=== PATIENT | female | born 1990 | race Caucasian/White ===

== ENCOUNTER 2017-04-20 23:06 | Inpatient (IN) | payer OTHER ==
[2017-04-20] MEDS ORDERED: Sodium Chloride 0.9% 1,000 ML IV STA (23:40)
--- NOTE | 2017-04-20 23:43 | ED PDOC ---
Arrival/HPI - General Chief Complaint: GI Problem Time Seen by Provider: 04/20/17 23:34 Historian: Patient - History of Present Illness Narrative History of Present Illness (Text): 04/20/17 23:40 26yo female in Ed with 5days history of abdominal pain associated with nausea, vomiting and diarrhea. Notes once episode of nonbilious/bloody vomiting today and diarrhea. Did not take any medication for symptoms. Denies fever, chills, chest pain, melena, hematemesis, urinary symptoms, sick contact, any other complaint. Past Medical History - Provider Review Nursing Documentation Reviewed: Yes - Infectious Disease Hx of Infectious Diseases: None - Tetanus Immunization Tetanus Immunization: Unknown - Past Medical History Past Medical History: No Previous - Psychiatric Hx Depression: No Hx Emotional Abuse: No Hx Physical Abuse: No Hx Substance Use: No - Past Surgical History Past Surgical History: No Previous - Surgical History Other/Comment: liposuction - Anesthesia Hx Anesthesia: No Hx Anesthesia Reactions: No Hx Malignant Hyperthermia: No - Suicidal Assessment Feels Threatened In Home Enviroment: No Family/Social History - Physician Review Nursing Documentation Reviewed: Yes Family/Social History: Unknown Family HX Smoking Status: Former Smoker Hx Alcohol Use: Yes (Socially) Hx Substance Use: No Hx Substance Use Treatment: No Allergies/Home Meds Allergies/Adverse Reactions: Allergies No Known Allergies Allergy (Verified 06/30/16 19:39) Review of Systems - Physician Review All systems were reviewed & negative as marked: Yes - Review of Systems Constitutional: Normal Eyes: Normal ENT: Normal Respiratory: Normal Cardiovascular: Normal Gastrointestinal: Abdominal Pain, Diarrhea, Nausea, Vomiting. absent: Constipation, Hematochezia, Hematemesis Genitourinary Female: Normal Musculoskeletal: Normal Skin: Normal Neurological: Normal Endocrine: Normal Hemo/Lymphatic: Normal Psychiatric: Normal Physical Exam Vital Signs Reviewed: Yes Vital Signs Temp Pulse Resp BP Pulse Ox 04/20/17 23:28 99.1 F 88 18 102/58 L 99 Temperature: Afebrile Blood Pressure: Normal Pulse: Regular Respiratory Rate: Normal Appearance: Positive for: Well-Appearing, Non-Toxic, Comfortable Pain Distress: None Mental Status: Positive for: Alert and Oriented X 3 - Systems Exam Head: Present: Atraumatic, Normocephalic Pupils: Present: PERRL Extroacular Muscles: Present: EOMI Conjunctiva: Present: Normal Mouth: Present: Moist Mucous Membranes Neck: Present: Normal Range of Motion Respiratory/Chest: Present: Clear to Auscultation, Good Air Exchange. No: Respiratory Distress, Accessory Muscle Use Cardiovascular: Present: Regular Rate and Rhythm, Normal S1, S2. No: Murmurs Abdomen: Present: Tenderness (Diffuse tenderness with deep palpation), Normal Bowel Sounds, Other (Soft). No: Distention, Peritoneal Signs, Rebound, Guarding , McBurney's Point Tender, Rovsing's Sign Present Back: Present: Normal Inspection Upper Extremity: Present: Normal Inspection. No: Cyanosis, Edema Lower Extremity: Present: Normal Inspection. No: Edema Neurological: Present: GCS=15, CN II-XII Intact, Speech Normal Skin: Present: Warm, Dry, Normal Color. No: Rashes Psychiatric: Present: Alert, Oriented x 3, Normal Insight, Normal Concentration Medical Decision Making ED Course and Treatment: 04/21/17 01:10 PT presented for stated history. She had no leukocytosis, but hyponatremia and hypokalemia was noted. She complained of nausea in ED and antiemetics was given. she will be placed on OBS for repletion of her electrolytes. She was given 1 L of NS and Potassium was ordered. Case was DW Dr. Castellanos and he accepted pt. Result and plan was DW the pt and she agreed. - Lab Interpretations Lab Results: 04/21/17 00:16 04/21/17 00:16 Lab Results 04/21/17 00:16: Sodium 125 L, Potassium 3.0 L, Chloride 92 L, Carbon Dioxide 23 , Anion Gap 13, BUN 19, Creatinine 1.2, Est GFR ( Amer) > 60, Est GFR ( Non-Af Amer) 54, Random Glucose 110, Calcium 8.2 L, Total Bilirubin 0.8, AST 27 , ALT 31, Alkaline Phosphatase 68, Total Protein 6.8, Albumin 3.3, Globulin 3.5 , Albumin/Globulin Ratio 1.0 L, Lipase 104 04/21/17 00:16: Urine Color Yellow, Urine Appearance Cloudy, Urine pH 6.0, Ur Specific [place] 1.025, Urine Protein 100 H, Urine Glucose (UA) Negative, Urine Ketones Negative, Urine Blood Small H, Urine Nitrate Negative, Urine Bilirubin Small H, Urine Urobilinogen 0.2, Ur Leukocyte Esterase Negative, Urine RBC 1 - 3 , Urine WBC 2 - 5, Ur Epithelial Cells 1 - 3, Urine Bacteria Small, Hyaline Casts 0 - 2, Fine Granular Casts 0 - 2 04/21/17 00:16: PT 12.7 H, INR 1.18 H, APTT 34.5 H 04/21/17 00:16: WBC 9.0, RBC 4.62, Hgb 14.1, Hct 38.7, MCV 83.8, MCH 30.5, MCHC 36.4, RDW 13.3, Plt Count 198, MPV 10.9, Neutrophils % (Manual) Pending, Lymphocytes % (Manual) Pending, Monocytes % (Manual) Pending - Medication Orders Current Medication Orders: Potassium Chloride (Potassium Chloride 20 Meq/100 Ml) 20 meq in 100 mls @ 50 mls/hr IVPB Q2H STA Stop: 04/21/17 03:05 Discontinued Medications Famotidine (Pepcid) 20 mg IVP STAT STA Stop: 04/20/17 23:41 Last Admin: 04/21/17 00:27 Dose: 20 mg Sodium Chloride (Sodium Chloride 0.9%) 1,000 mls @ 1,000 mls/hr IV .Q1H STA Stop: 04/21/17 00:39 Last Admin: 04/21/17 00:27 Dose: 1,000 mls/hr Ondansetron HCl (Zofran Inj) 4 mg IVP STAT STA Stop: 04/20/17 23:41 Last Admin: 04/21/17 00:27 Dose: 4 mg Disposition/Present on Arrival - Present on Arrival Any Indicators Present on Arrival: No History of DVT/PE: No History of Uncontrolled Diabetes: No Urinary Catheter: No History of Decub. Ulcer: No History Surgical Site Infection Following: None - Disposition Have Diagnosis and Disposition been Completed?: Yes Diagnosis: Abdominal pain, Vomiting and diarrhea, Hyponatremia Disposition: HOSPITALIZED Disposition Time: 01:05 Condition: FAIR
[2017-04-21 00:36] LABS: URINE BILIRUBIN SMALL (NEGATIVE); URINE BLOOD SMALL (NEGATIVE); URINE GLUCOSE (UA) NEGATIVE (NEGATIVE); URINE KETONE NEGATIVE (NEGATIVE); URINE LEUKOCYTE ESTERASE NEGATIVE Leu/uL (NEGATIVE); URINE PROTEIN 100 mg/dL (<30 mg/dL); URINE UROBILINOGEN 0.2 E.U./dL (<1 E.U./dL)
[2017-04-21 00:38] LABS: URINE APPEARANCE CLOUDY (CLEAR); URINE COLOR YELLOW (YELLOW)
[2017-04-21 00:42] LABS: HEMATOCRIT 38.7 % (36.0-48.0); MEAN CELL VOLUME 83.8 fL (80.0-105.0); MEAN CORPUSCULAR HEMOGLOBIN 30.5 pg (25.0-35.0); MEAN CORPUSCULAR HGB CONC 36.4 g/dl (31.0-37.0); MEAN PLATELET VOLUME 10.9 fl (7.0-11.0); PLATELET COUNT 198 10^3/uL (120.0-450.0); RED CELL DISTRIBUTION WIDTH 13.3 % (11.5-14.5)
[2017-04-21 00:46] LABS: ADD MANUAL DIFF? YES
[2017-04-21 00:51] LABS: ALKALINE PHOSPHATASE 68 U/L (38-133); ALT/SGPT 31 U/L (7-56); AST/SGOT 27 U/L (15-39); BILIRUBIN,TOTAL 0.8 mg/dL (0.2-1.3); BLOOD UREA NITROGEN 19 mg/dL (7-21); CALCIUM 8.2 mg/dL (8.4-10.5); CARBON DIOXIDE 23 mmol/L (21-33); CHLORIDE 92 mmol/L (95-110); GFR AFRICAN-AMERICAN > 60; GLUCOSE,RANDOM 110 mg/dL (70-110); LIPASE 104 U/L (23-300); SODIUM 125 mmol/L (132-148); TOTAL PROTEIN 6.8 g/dL (5.8-8.3)
[2017-04-21 00:53] LABS: INR 1.18 (0.93-1.08); PARTIAL THROMBOPLASTIN TIME 34.5 Seconds (23.7-30.8); URINE BACTERIA SMALL (NEG)
[2017-04-21 01:31] LABS: NEUTROPHIL 44 % (50.0-70.0)
[2017-04-21 01:37] LABS: PLATELET ESTIMATE NORMAL (NORMAL)
[2017-04-21 01:40] LABS: BAND 13 % (0-2)
[2017-04-21 01:41] LABS: LARGE PLATELETS PRESENT; TOXIC GRANULATION 1+
--- NOTE | 2017-04-21 03:51 | CP.PCM.HP ---
<Jordan Jarrell - Last Filed: 04/21/17 04:25> History of Present Illness - History of Present Illness History of Present Illness: 26 year old female with no significant past medical history presents to [facility] ED with abdominal pain, vomiting and diarrhea of 5 days. Patient reports on 04/16/17, she woke in the middle of the having generalized weakness and proceed to have NBNB vomiting and diarrhea. Patient also had a subjective fever at that time. Since then patient had about 3 episodes of vomiting and multiple bouts (every 30mins) of diarrhea daily. Two days after the onset patient started see small amount of blood in her diarrhea intermittently. Patient is not currently menstruating. Patient describes abdomen pain has a bloating sensation, and its worsen with movement or palpation. She tried taking over the counter motrin and luz seltzer, but did not provide any relief. Patient also complains of decreased appetite and cannot keep any solid food down. Patient reports a group of friends and her returned from a week long vacation in [facility] on 04/12/17. Out of 28 friends, 6 of them became sick with similar symptoms of abdominal pain, vomiting and diarrhea. However, most them started having symptoms on the last day of the trip and symptoms are not as severe as patient's. Denies having change of vision, photosensitivity, loss of consciousness, shortness of breath, chest pain, or urinary symptoms. PMD: Dr Capone PMHx: none PSHx: none Allergy: NKDA Social Hx: former smoke of 3 years, social alcohol consumption, denies other illicit drug use Family Hx: mother-Lupus Medications: none Present on Admission - Present on Admission Any Indicators Present on Admission: No History of DVT/PE: No History of Uncontrolled Diabetes: No Review of Systems - Constitutional Constitutional: As Per HPI, Chills, Fatigue, Fever. absent: Increased Appetite - EENT Eyes: As Per HPI. absent: Blurred Vision, Change in Vision, Loss of Vision Ears: As Per HPI, Dizziness Nose/Mouth/Throat: As Per HPI. absent: Nasal Trauma, Post Nasal Drip, Dry Mouth - Cardiovascular Cardiovascular: As Per HPI. absent: Chest Pain, Edema, Leg Edema, Pedal Edema, Syncope - Respiratory Respiratory: As Per HPI. absent: Cough, Dyspnea, Wheezing - Gastrointestinal Gastrointestinal: As Per HPI, Abdominal Pain, Bloating, Change in Bowel Habits, Diarrhea, Nausea, Vomiting. absent: Constipation - Genitourinary Genitourinary: As Per HPI. absent: Dysuria, Hematuria, Urinary Frequency - Musculoskeletal Musculoskeletal: As Per HPI. absent: Deformity, Myalgias - Integumentary Integumentary: As Per HPI. absent: Furuncle, Lesions, Photosensitivity, Rash - Neurological Neurological: As Per HPI, Dizziness. absent: Headaches, Loss of Vision, Sensory Deficit, Syncope - Psychiatric Psychiatric: As Per HPI. absent: Confusion, Depression - Endocrine Endocrine: As Per HPI - Hematologic/Lymphatic Hematologic: As Per HPI Past Patient History - Infectious Disease Hx of Infectious Diseases: None - Tetanus Immunizations Tetanus Immunization: Unknown - Past Social History Smoking Status: Former Smoker - PSYCHIATRIC Hx Depression: No Hx Emotional Abuse: No Hx Physical Abuse: No Hx Substance Use: No - SURGICAL HISTORY Other/Comment: liposuction - ANESTHESIA Hx Anesthesia: No Hx Anesthesia Reactions: No Hx Malignant Hyperthermia: No Meds Allergies/Adverse Reactions: Allergies Allergy/AdvReac Type Severity Reaction Status Date / Time No Known Allergies Allergy Verified 06/30/16 19:39 Physical Exam - Constitutional Appears: Non-toxic, No Acute Distress - Head Exam Head Exam: ATRAUMATIC, NORMAL INSPECTION, NORMOCEPHALIC - Eye Exam Eye Exam: EOMI, Normal appearance, PERRL - ENT Exam ENT Exam: Mucous Membranes Moist - Neck Exam Neck exam: Positive for: Normal Inspection - Respiratory Exam Respiratory Exam: Clear to Auscultation Bilateral, NORMAL BREATHING PATTERN. absent: Rhonchi, Wheezes, Respiratory Distress - Cardiovascular Exam Cardiovascular Exam: REGULAR RHYTHM, RRR, +S1, +S2 - GI/Abdominal Exam GI & Abdominal Exam: Soft, Tenderness (diffused tenderness). absent: Bruit, Hernia, Mass, Rigid - Extremities Exam Extremities exam: Positive for: normal capillary refill, normal inspection, pedal pulses present. Negative for: tenderness - Back Exam Back exam: NORMAL INSPECTION - Neurological Exam Neurological exam: Alert, Oriented x3 - Psychiatric Exam Psychiatric exam: Normal Affect, Normal Mood - Skin Skin Exam: Dry, Intact, Normal Color, Warm Results - Vital Signs Recent Vital Signs: Last Vital Signs Temp 99.1 F 04/20/17 23:28 Pulse 88 04/20/17 23:28 Resp 18 04/20/17 23:28 BP 102/58 L 04/20/17 23:28 Pulse Ox 99 04/20/17 23:28 - Labs Result Diagrams: 04/21/17 00:16 04/21/17 00:16 Assessment & Plan - Assessment and Plan (Free Text) Assessment: 26 year old female with no significant past medical history presents with abdominal pain, vomiting and diarrhea Plan: Gastroenteritis -Bacteria vs viral vs parasitic -Band neutrophil at 13 -Ciprofloxacin IV 400mg Q12 -Flagyl IV 500mg Q8 -Follow up fecal leukocyte, c. diff toxin, ova parasite -Zofran 4mg q6h prn -Fecal occult blood positive -Follow up abdominal CT -Clear liquid diet Electrolyte imbalance -Likely secondary to prolong vomiting and diarrhea -Hyponatremia at 125, hypokalemia at 3.0 -IVF NS 125ml/hr with 40meq of KCl -Follow up EKG -Follow up labs, supplement as needed Prophylactic measures -Protonix for GI -SCD for DVT -Tylenol for fever <Taurus Castellanos P - Last Filed: 04/22/17 19:58> Results - Vital Signs Recent Vital Signs: Last Vital Signs Temp 98 F 04/22/17 12:00 Pulse 79 04/22/17 12:00 Resp 18 04/22/17 12:00 BP 95/63 L 04/22/17 12:00 Pulse Ox 97 04/22/17 06:00 - Labs Result Diagrams: 04/22/17 16:33 04/22/17 16:33 Labs: Laboratory Results - last 24 hr 04/22/17 04/22/17 16:33 16:33 WBC 12.2 H D RBC 3.56 Hgb 10.9 L Hct 30.3 L MCV 85.1 MCH 30.6 MCHC 36.0 RDW 14.1 Plt Count 211 MPV 10.0 Sodium 133 Potassium 3.7 Chloride 106 Carbon Dioxide 22 Anion Gap 9 L BUN 6 L Creatinine 0.7 Est GFR ( Amer) > 60 Est GFR (Non-Af Amer) > 60 Random Glucose 85 Calcium 8.9 Attending/Attestation - Attestation I have personally seen and examined this patient.: Yes I have fully participated in the care of the patient.: Yes I have reviewed all pertinent clinical information: Yes
[2017-04-21] MEDS ORDERED: Iohexol 240 (50 ml) ONE (04:09)
[2017-04-21] MEDS ORDERED: Iohexol 350 MG/100 ML VIAL ONE (05:41)
[2017-04-21] MEDS: metroNIDAZOLE IV 500 mg/100 ml 500 MG/100 ML BAG IVPB SCH ×3 (06:48→21:55)
--- NOTE | 2017-04-21 07:32 | CT ---
EXAM: CT Abdomen and Pelvis With Intravenous Contrast CLINICAL HISTORY: 26 years old, female; Pain; Abdominal pain; Generalized TECHNIQUE: Axial computed tomography images of the abdomen and pelvis with intravenous contrast. This CT exam was performed using one or more of the following dose reduction techniques: automated exposure control, adjustment of the mA and/or kV according to patient size, and/or use of iterative reconstruction technique. Coronal and sagittal reformatted images were created and reviewed. CONTRAST: 96 mL of OMNI 350 administered intravenously. EXAM DATE/TIME: 04/21/2017 2:52 AM COMPARISON: No relevant prior studies available. FINDINGS: Lower thorax: No acute findings. ABDOMEN: Liver: Unremarkable. No mass. Gallbladder and bile ducts: Unremarkable. No calcified stones. No ductal dilation. Pancreas: Unremarkable. No mass. No ductal dilation. Spleen: Unremarkable. No splenomegaly. Adrenals: Unremarkable. No mass. Kidneys and ureters: Unremarkable. No solid mass. No hydronephrosis. Stomach and bowel: Wall thickening and edema from about mid transverse colon to proximal sigmoid. Descending colon is affected the most. Pericolic edema. Sparing of ascending colon. Small bowel and terminal ileum appear unremarkable. Appendix: Normal. PELVIS: Bladder: Unremarkable. No mass. Reproductive: Unremarkable as visualized. ABDOMEN and PELVIS: Intraperitoneal space: Unremarkable. No free air. No significant fluid collection. Bones/joints: No acute fracture. Soft tissues: Unremarkable. Vasculature: Unremarkable. No abdominal aortic aneurysm. Lymph nodes: Mesenteric nodes of 1 cm and less, most concentrated in right lower quadrant. IMPRESSION: Inflammatory versus infectious colitis from mid transverse to proximal sigmoid.
[2017-04-21 08:18] LABS: ADD MANUAL DIFF? NO
[2017-04-21 08:30] LABS: BASO # 0.08 K/mm3 (0.0-2.0); BASO % 0.8 % (0.0-3.0); GRAN # 5.06 (1.4-6.5); GRAN % 51.2 % (50.0-68.0); LYMPH # 2.2 (1.2-3.4); LYMPH % 21.8 % (22.0-35.0); MEAN CELL VOLUME 84.6 fL (80.0-105.0); MEAN CORPUSCULAR HEMOGLOBIN 30.3 pg (25.0-35.0); MEAN CORPUSCULAR HGB CONC 35.8 g/dl (31.0-37.0); MEAN PLATELET VOLUME 10.3 fl (7.0-11.0); MONO # 2.6 (0.1-0.6); MONO % 26.2 % (1.0-6.0); PLATELET COUNT 168 10^3/uL (120.0-450.0); RED CELL DISTRIBUTION WIDTH 13.4 % (11.5-14.5); WHITE BLOOD COUNT 9.9 10^3/ul (4.5-11.0)
[2017-04-21 08:49] LABS: ALB/GLOB RATIO 0.9 (1.1-1.8); ALKALINE PHOSPHATASE 60 U/L (38-133); ALT/SGPT 34 U/L (7-56); AST/SGOT 25 U/L (15-39); BILIRUBIN,TOTAL 0.6 mg/dL (0.2-1.3); BLOOD UREA NITROGEN 13 mg/dL (7-21); CALCIUM 7.2 mg/dL (8.4-10.5); CARBON DIOXIDE 24 mmol/L (21-33); CHLORIDE 100 mmol/L (98-107); GFR AFRICAN-AMERICAN > 60; GLUCOSE,RANDOM 85 mg/dL (70-110); POTASSIUM 3.4 mmol/L (3.6-5.0); SODIUM 131 mmol/L (132-148); TOTAL PROTEIN 5.7 g/dL (5.8-8.3)
--- NOTE | 2017-04-21 09:58 | CARD ---
APPROVED REPORT EKG Measurement Heart [id number] OH [id number] [id number] TCc100 <Conclusion> Normal sinus rhythm Nonspecific T wave abnormality Abnormal ECG
[2017-04-21] MEDS ORDERED: Ciprofloxacin 400mg/200ml D5W 400 MG/200 ML BAG IVPB SCH (10:00)
[2017-04-21] MEDS: cefTRIAXone 1 gm 1 GM/100 ML BAG IVPB SCH (12:30)
[2017-04-21 13:38] VITALS: BMI 31.0
[2017-04-21] MEDS ORDERED: Pneumococcal 23-Valent Vaccine IM ONE (13:38)
[2017-04-21] MEDS ORDERED: Sodium Chloride 0.9% 1,000 ML IV STA (16:10)
--- NOTE | 2017-04-21 17:38 | CP.PCM.CON ---
History of Present Illness - History of Present Illness History of Present Illness: 26 year old female with no significant past medical history came in to [facility] complaining of a 5-6 day history of ongoing watery diarrhea as well occasional blood in the stool, associated with generalized weakness, fatigue and occasional vomiting. The patient states that she was recently in the [place] starting 2 weeks ago for vacation and was having raw seafood with her friends about 9 or 10 days ago. About 4-5 days later, 6 of her friends including her started having diarrhea, but her friends did not have as bad as her symptoms. She also complained of subjective fevers. She denies headache or dizziness, no chest pain, no SOB, has abdominal cramping with the diarrhea, no cough or colds, no dysphagia, no blurring of vision, no dysuria. In the ED, CT scan of the abdomen and pelvis showed colitis of the sigmoid colon. Infectious Diseases consult is requested to further evaluate and manage. Review of Systems - Review of Systems All systems: reviewed and no additional remarkable complaints except (as per HPI ) Past Patient History - Infectious Disease Hx of Infectious Diseases: None - Tetanus Immunizations Tetanus Immunization: Unknown - Past Social History Smoking Status: Former Smoker - MUSCULOSKELETAL/RHEUMATOLOGICAL Hx Falls: No - GENITOURINARY/GYNECOLOGICAL Hx Urinary Tract Infection: Yes Other/Comment: vaginal infection - PSYCHIATRIC Hx Depression: No Hx Emotional Abuse: No Hx Physical Abuse: No Hx Substance Use: No - SURGICAL HISTORY Other/Comment: liposuction - ANESTHESIA Hx Anesthesia: No Hx Anesthesia Reactions: No Hx Malignant Hyperthermia: No Meds Allergies/Adverse Reactions: Allergies Allergy/AdvReac Type Severity Reaction Status Date / Time No Known Allergies Allergy Verified 06/30/16 19:39 - Medications Medications: Current Medications Acetaminophen (Tylenol 325mg Tab) 650 mg PO Q6H PRN PRN Reason: Fever >100.4 F Last Admin: 04/21/17 16:11 Dose: 650 mg Potassium Chloride 40 meq/ (Sodium Chloride) 1,020 mls @ 125 mls/hr IV .Q8H10M SOBEIDA Last Admin: 04/21/17 09:23 Dose: 125 mls/hr Metronidazole (Flagyl) 500 mg in 100 mls @ 100 mls/hr IVPB Q8 SOBEIDA PRN Reason: Protocol Last Admin: 04/21/17 14:07 Dose: 100 mls/hr Ceftriaxone Sodium (Rocephin 1 Gram Ivpb) 1 gm in 100 mls @ 100 mls/hr IVPB DAILY SOBEIDA PRN Reason: Protocol Last Admin: 04/21/17 12:30 Dose: 100 mls/hr Ondansetron HCl (Zofran Inj) 4 mg IVP Q6 PRN PRN Reason: Nausea/Vomiting Pantoprazole Sodium (Protonix Inj) 40 mg IVP DAILY [facility] Last Admin: 04/21/17 09:21 Dose: 40 mg Physical Exam - Constitutional Appears: Non-toxic, No Acute Distress - Head Exam Head Exam: NORMAL INSPECTION - ENT Exam ENT Exam: Mucous Membranes Moist - Neck Exam Neck exam: Negative for: Lymphadenopathy, Meningismus - Respiratory Exam Respiratory Exam: Decreased Breath Sounds - Cardiovascular Exam Cardiovascular Exam: +S1, +S2 - GI/Abdominal Exam GI & Abdominal Exam: Soft, Tenderness (left lower quadrant). absent: Distended , Firm, Rebound, Rigid Results - Vital Signs Recent Vital Signs: Last Vital Signs Temp 103 F H 04/21/17 16:11 Pulse 88 04/21/17 13:28 Resp 18 04/21/17 13:28 BP 122/63 04/21/17 13:28 Pulse Ox 98 04/21/17 05:08 - Labs Result Diagrams: 04/21/17 08:00 04/21/17 08:00 Labs: Laboratory Results - last 24 hr 04/21/17 04/21/17 04/21/17 03:30 08:00 08:00 WBC 9.9 RBC 3.90 Hgb 11.8 L Hct 33.0 L MCV 84.6 MCH 30.3 MCHC 35.8 RDW 13.4 Plt Count 168 MPV 10.3 Gran % 51.2 Lymph % (Auto) 21.8 L [place] % (Auto) 26.2 H Eos % (Auto) 0.0 L Baso % (Auto) 0.8 Gran # 5.06 Lymph # 2.2 Irion # 2.6 H Eos # 0.0 Baso # 0.08 Sodium 131 L Potassium 3.4 L Chloride 100 Carbon Dioxide 24 Anion Gap 10 BUN 13 Creatinine 1.0 Est GFR ( Amer) > 60 Est GFR (Non-Af Amer) > 60 Random Glucose 85 Calcium 7.2 L Total Bilirubin 0.6 AST 25 ALT 34 Alkaline Phosphatase 60 Total Protein 5.7 L Albumin 2.7 L Globulin 3.0 Albumin/Globulin Ratio 0.9 L Stool Occult Blood Positive H Assessment & Plan - Assessment and Plan (Free Text) Plan: Assessment Acute colitis, consider food-related, R/O dysentery from Salmonella, E. coli Plan Started patient on Rocephin and Flagyl pending blood cx, stool cx, stool for ova and parasites, fecal leukocytes Will monitor clinical response
--- NOTE | 2017-04-21 20:18 | CON ---
DATE: 04/21/2017 REASON FOR CONSULTATION: I have been asked to see this 26-year-old female with no prior medical hist ory who comes to the hospital with a 1-week history of continuous worsening watery diarrhea, nausea, vomiting and generalized weakness. HISTORY OF PRESENT ILLNESS: The patient states that she returned from the [facility] mate 10 days ago. Approximately 4 days into her trip to [facility], she developed diarrhea , abdominal cramps, nausea and vomiting after having raw seafood. Several of her friends developed s imilar symptoms. She also noted blood streaked stools after wiping her rectum after bowel movements. She did have some fevers over the last several weeks. CT scan of the abdomen and pelvis performed in the Emergency Room showed mural thickening of the distal transverse colon, descending colon and si gmoid colon with some pericolonic edema. She denies any hematemesis, chest pain, cough, shortness of breath, hematuria. PHYSICAL EXAMINATION: GENERAL: Well-developed female lying in bed in no acute distress. VITAL SIGNS: Reveal temperature of 102.4, blood pressure of 98/48, heart rate of 85. HEENT: Reveals sclerae to be white, conjunctivae pink. Oral mucosa slightly dry. NECK: Supple. CHEST: Reveals lungs to be clear. HEART: Reveals a regular rate and rhythm. ABDOMEN: Soft, mild diffuse tenderness. No rebound, no guarding. EXTREMITIES: Show no edema. LABORATORY DATA: Reveal white blood cell count 9.9, hemoglobin 11.8. Chemistries reveal sodium 131, potassium 3.4. IMPRESSION: A 26-year-old female who developed profuse watery diarrhea associated with nausea and vo miting while visiting the [facility] after eating raw seafood. Several of her friends hayden ped similar diarrheal illness. I suspect that this is either food poisoning or an infectious gastroe nteritis from either salmonella or possibly Escherichia coli. Her renal function is normal. Stool f or Clostridium difficile toxin is negative. RECOMMENDATIONS: 1. Check stool for C and S and ova and parasites. 2. Clear liquids as tolerated. 3. Continue IV Flagyl. Cristobal Whitaker MD cc: [id number] TT: 04/21/2017 20:16:45 Confirmation # [id number] Dictation # [id number] jn
[2017-04-22] MEDS: metroNIDAZOLE IV 500 mg/100 ml 500 MG/100 ML BAG IVPB SCH ×3 (05:07→22:01)
[2017-04-22] MEDS: cefTRIAXone 1 gm 1 GM/100 ML BAG IVPB SCH (10:05)
--- NOTE | 2017-04-22 10:29 | PN ---
DATE: 04/22/2017 SUBJECTIVE: The patient is lying in bed. She feels a little better. She has less cramps. She kilo es any nausea and vomiting. She continues to have diarrhea. PHYSICAL EXAMINATION: VITAL SIGNS: Reveal temperature of 97.6, blood pressure 96/40, heart rate 73. ABDOMEN: Soft, mild diffuse tenderness. No rebound, no guarding. LABORATORY DATA: Reveal white blood cell count down to 9.9, hemoglobin 11.8. IMPRESSION: A 26-year-old female who developed diarrhea in the [place] after eating raw s eafood with CT scan of the abdomen and pelvis showing mural thickening of the distal transverse as we ll as the left colon. This is either an infectious colitis or a foodborne gastroenteritis. Stool fo r Clostridium difficile was negative. RECOMMENDATIONS: 1. Await stool cultures as well as stool for ova and parasites. 2. Continue IV metronidazole as well as IV ceftriaxone. 3. Will advance to low-fat, lactose-free diet. Cristobal Whitaker MD cc: 79 TT: 04/22/2017 10:29:08 Confirmation # [id number] Dictation # [id number]
[2017-04-22] MEDS ORDERED: Potassium Chloride 20 mEq ER Tab PO ONE (14:28)
--- NOTE | 2017-04-22 16:06 | CP.PCM.PN ---
<Enzo Best - Last Filed: 04/22/17 16:29> Subjective - Date & Time of Evaluation Date of Evaluation: 04/22/17 Time of Evaluation: 10:45 - Subjective Subjective: Patient seen and examined this morning with medical team. Patient reports no fever/chills this morning. States she feels better compared to yesterday. Patient reports having loose bowel movements however frequency has decreased. Patient still reports some left lower quadrant tenderness. Denies n/v. Tmax on 04/21: 103F. Tmax on 04/22: 98.8. Tolerating liquid diet. Objective - Vital Signs/Intake and Output Vital Signs (last 24 hours): Temp Pulse Resp BP Pulse Ox 98 F 79 18 95/63 L 97 04/22/17 12:00 04/22/17 12:00 04/22/17 12:00 04/22/17 12:00 04/22/17 06:00 Intake and Output: 04/22/17 04/22/17 06:59 18:59 Intake Total 1598 Balance 1598 - Medications Medications: Current Medications Acetaminophen (Tylenol 325mg Tab) 650 mg PO Q4H PRN PRN Reason: Fever >100.4 F Last Admin: 04/22/17 15:44 Dose: 650 mg Potassium Chloride 40 meq/ (Sodium Chloride) 1,020 mls @ 125 mls/hr IV .Q8H10M [facility] Last Admin: 04/22/17 07:00 Dose: 125 mls/hr Metronidazole (Flagyl) 500 mg in 100 mls @ 100 mls/hr IVPB Q8 [facility] PRN Reason: Protocol Last Admin: 04/22/17 15:43 Dose: 100 mls/hr Ceftriaxone Sodium (Rocephin 1 Gram Ivpb) 1 gm in 100 mls @ 100 mls/hr IVPB DAILY [facility] PRN Reason: Protocol Last Admin: 04/22/17 10:05 Dose: 100 mls/hr Ondansetron HCl (Zofran Inj) 4 mg IVP Q6 PRN PRN Reason: Nausea/Vomiting Pantoprazole Sodium (Protonix Inj) 40 mg IVP DAILY [facility] Last Admin: 04/22/17 10:05 Dose: 40 mg - Labs Labs: 04/21/17 08:00 04/21/17 08:00 PT 12.7 Seconds (9.9-11.8) H 05/24/17 00:16 INR 1.18 (0.93-1.08) H 04/21/17 00:16 APTT 34.5 Seconds (23.7-30.8) H 04/21/17 00:16 - Constitutional Appears: No Acute Distress - Head Exam Head Exam: NORMOCEPHALIC - Eye Exam Eye Exam: EOMI - Respiratory Exam Respiratory Exam: NORMAL BREATHING PATTERN - Cardiovascular Exam Cardiovascular Exam: +S1, +S2 - GI/Abdominal Exam GI & Abdominal Exam: Soft, Tenderness Additional comments: llq tenderness - Neurological Exam Neurological Exam: Alert, Awake, Oriented x3 - Psychiatric Exam Psychiatric exam: Normal Mood - Skin Skin Exam: Dry Assessment and Plan - Assessment and Plan (Free Text) Assessment: 26 year old female with no significant past medical history presents with abdominal pain subjective fever/chills, vomiting and diarrhea Plan: Acute Colitis -? food-related, R/O dysentery from Salmonella, E. coli -WBC @ 9.9 -Ceftriaxone -Flagyl IV 500mg Q8 -Follow up fecal leukocyte -C.diff: negative -Stool and Ova: negative -Blood cx: no growth after 24 hrs -ID recs appreciated -Zofran 4mg q6h prn -Fecal occult blood positive -Abdominal CT: Infectious/Inflammatory colitis from mid transverse colon to proximal sigmoid colon -Diet advanced as per GI. Altered GI diet. -Downgrade patient from remote tele to med/surg Electrolyte imbalance -Likely secondary to prolong vomiting and diarrhea -Hyponatremia at 131, c/w IVF NS -hypokalemia at 3.4, repleted -IVF NS 125ml/hr with 40meq of KCl -Follow up AM labs, supplement as needed Prophylactic measures -Protonix for GI -SCD for DVT -Tylenol for fever Q4h Assessment and plan d/w medical attending <Tariq Isabel - Last Filed: 04/22/17 16:53> Objective - Vital Signs/Intake and Output Vital Signs (last 24 hours): Temp Pulse Resp BP Pulse Ox 98 F 79 18 95/63 L 97 04/22/17 12:00 04/22/17 12:00 04/22/17 12:00 04/22/17 12:00 04/22/17 06:00 Intake and Output: 04/22/17 04/22/17 06:59 18:59 Intake Total 1598 Balance 1598 - Medications Medications: Current Medications Acetaminophen (Tylenol 325mg Tab) 650 mg PO Q4H PRN PRN Reason: Fever >100.4 F Last Admin: 04/22/17 15:44 Dose: 650 mg Potassium Chloride 40 meq/ (Sodium Chloride) 1,020 mls @ 125 mls/hr IV .Q8H10M [facility] Last Admin: 04/22/17 07:00 Dose: 125 mls/hr Metronidazole (Flagyl) 500 mg in 100 mls @ 100 mls/hr IVPB Q8 [facility] PRN Reason: Protocol Last Admin: 04/22/17 15:43 Dose: 100 mls/hr Ceftriaxone Sodium (Rocephin 1 Gram Ivpb) 1 gm in 100 mls @ 100 mls/hr IVPB DAILY [facility] PRN Reason: Protocol Last Admin: 04/22/17 10:05 Dose: 100 mls/hr Ondansetron HCl (Zofran Inj) 4 mg IVP Q6 PRN PRN Reason: Nausea/Vomiting Pantoprazole Sodium (Protonix Inj) 40 mg IVP DAILY [facility] Last Admin: 04/22/17 10:05 Dose: 40 mg - Labs Labs: 04/22/17 16:33 04/21/17 08:00 PT 12.7 Seconds (9.9-11.8) H 04/21/17 00:16 INR 1.18 (0.93-1.08) H 04/21/17 00:16 APTT 34.5 Seconds (23.7-30.8) H 04/21/17 00:16 Attending/Attestation - Attestation I have personally seen and examined this patient.: Yes I have fully participated in the care of the patient.: Yes I have reviewed all pertinent clinical information, including history, physical exam and plan: Yes Notes (Text): 04/22/17 16:50 26 year old female with no significant past medical history who presented with complaint of fever, nausea, vomiting, diarrhea and abdominal pain. She admits to recent travel and sicks contacts with similar complaints. CT abd/pelvis showed infectious vs inflammatory colitis from the mid transverse colon to proximal sigmoid colon. Consider acute gastroenteritis or infectious colitis. ID and GI are following. 26 year old female with no significant past medical history presents with abdominal pain subjective fever/chills, vomiting and diarrhea Plan: Acute Colitis -? food-related, R/O dysentery from Salmonella, E. coli -WBC @ 9.9 -Ceftriaxone -Flagyl IV 500mg Q8 -Follow up fecal leukocyte -C.diff: negative -Stool and Ova: negative -Blood cx: no growth after 24 hrs -ID recs appreciated -Zofran 4mg q6h prn -Fecal occult blood positive -Abdominal CT: Infectious/Inflammatory colitis from mid transverse colon to proximal sigmoid colon -Diet advanced as per GI. Altered GI diet. -Downgrade patient from remote tele to med/surg Electrolyte imbalance -Likely secondary to prolong vomiting and diarrhea -Hyponatremia at 131, c/w IVF NS -hypokalemia at 3.4, repleted -IVF NS 125ml/hr with 40meq of KCl -Follow up AM labs, supplement as needed
[2017-04-22 16:36] LABS: HEMATOCRIT 30.3 % (36.0-48.0); MEAN CELL VOLUME 85.1 fL (80.0-105.0); MEAN CORPUSCULAR HEMOGLOBIN 30.6 pg (25.0-35.0); RED CELL DISTRIBUTION WIDTH 14.1 % (11.5-14.5); WHITE BLOOD COUNT 12.2 10^3/ul (4.5-11.0)
[2017-04-22 16:50] LABS: BLOOD UREA NITROGEN 6 mg/dL (7-21); CALCIUM 8.9 mg/dL (8.4-10.5); CARBON DIOXIDE 22 mmol/L (21-33); CHLORIDE 106 mmol/L (98-107); GFR AFRICAN-AMERICAN > 60; GLUCOSE,RANDOM 85 mg/dL (70-110); POTASSIUM 3.7 mmol/L (3.6-5.0); SODIUM 133 mmol/L (132-148)
--- NOTE | 2017-04-22 22:13 | CP.PCM.PN ---
Subjective - Date & Time of Evaluation Date of Evaluation: 04/22/17 Time of Evaluation: 09:30 - Subjective Subjective: Had fever last night, but no fever this morning. Abdominal cramping is a little less compared to yesterday. Still with diarrhea but a little less compared to previous days. Objective - Vital Signs/Intake and Output Vital Signs (last 24 hours): Temp Pulse Resp BP Pulse Ox 98.4 F 83 20 97/58 L 97 04/22/17 20:27 04/22/17 20:27 04/22/17 20:27 04/22/17 20:27 04/22/17 06:00 Intake and Output: 04/22/17 04/23/17 18:59 06:59 Intake Total 675 Balance 675 - Medications Medications: Current Medications Acetaminophen (Tylenol 325mg Tab) 650 mg PO Q4H PRN PRN Reason: Fever >100.4 F Last Admin: 04/22/17 15:44 Dose: 650 mg Potassium Chloride 40 meq/ (Sodium Chloride) 1,020 mls @ 125 mls/hr IV .Q8H10M [facility] Last Admin: 04/22/17 22:01 Dose: 125 mls/hr Metronidazole (Flagyl) 500 mg in 100 mls @ 100 mls/hr IVPB Q8 [facility] PRN Reason: Protocol Last Admin: 04/22/17 22:01 Dose: 100 mls/hr Ceftriaxone Sodium (Rocephin 1 Gram Ivpb) 1 gm in 100 mls @ 100 mls/hr IVPB DAILY [facility] PRN Reason: Protocol Last Admin: 04/22/17 10:05 Dose: 100 mls/hr Ondansetron HCl (Zofran Inj) 4 mg IVP Q6 PRN PRN Reason: Nausea/Vomiting Pantoprazole Sodium (Protonix Inj) 40 mg IVP DAILY [facility] Last Admin: 04/22/17 10:05 Dose: 40 mg - Labs Labs: 04/22/17 16:33 04/22/17 16:33 PT 12.7 Seconds (9.9-11.8) H 04/21/17 00:16 INR 1.18 (0.93-1.08) H 04/21/17 00:16 APTT 34.5 Seconds (23.7-30.8) H 04/21/17 00:16 - Constitutional Appears: Non-toxic, No Acute Distress - Head Exam Head Exam: NORMAL INSPECTION - Neck Exam Neck Exam: absent: Lymphadenopathy, Meningismus - Respiratory Exam Respiratory Exam: Decreased Breath Sounds - Cardiovascular Exam Cardiovascular Exam: +S1, +S2 - GI/Abdominal Exam GI & Abdominal Exam: Soft, Tenderness (mild, left lower quadrant). absent: Distended, Guarding, Rigid, Rebound Assessment and Plan - Assessment and Plan (Free Text) Plan: Assessment sepsis due to acute colitis, consider food-related, R/O dysentery from Salmonella, E. coli Plan continue Rocephin and Flagyl day 2 pending final blood cx, stool cx, stool for ova and parasites, fecal leukocytes Will continue to monitor clinical response
[2017-04-23] MEDS: metroNIDAZOLE IV 500 mg/100 ml 500 MG/100 ML BAG IVPB SCH ×2 (06:12→17:28)
[2017-04-23] MEDS: cefTRIAXone 1 gm 1 GM/100 ML BAG IVPB SCH (09:30)
[2017-04-23 10:27] LABS: ADD MANUAL DIFF? NO
[2017-04-23 10:31] LABS: BASO # 0.05 K/mm3 (0.0-2.0); BASO % 0.5 % (0.0-3.0); EOS # 0.1 (0.0-0.7); EOS % 1.2 % (1.5-5.0); GRAN # 6.91 (1.4-6.5); GRAN % 66.4 % (50.0-68.0); HEMATOCRIT 35.2 % (36.0-48.0); LYMPH # 2.5 (1.2-3.4); MEAN CORPUSCULAR HEMOGLOBIN 30.7 pg (25.0-35.0); MEAN CORPUSCULAR HGB CONC 36.1 g/dl (31.0-37.0); MEAN PLATELET VOLUME 11.1 fl (7.0-11.0); MONO # 0.8 (0.1-0.6); MONO % 7.9 % (1.0-6.0); PLATELET COUNT 294 10^3/uL (120.0-450.0); RED CELL DISTRIBUTION WIDTH 14.4 % (11.5-14.5); WHITE BLOOD COUNT 10.4 10^3/ul (4.5-11.0)
[2017-04-23 10:48] LABS: BLOOD UREA NITROGEN 7 mg/dL (7-21); CALCIUM 8.1 mg/dL (8.4-10.5); CARBON DIOXIDE 20 mmol/L (21-33); CHLORIDE 110 mmol/L (95-110); GFR AFRICAN-AMERICAN > 60; GLUCOSE,RANDOM 81 mg/dL (70-110); POTASSIUM 3.7 mmol/L (3.6-5.0); SODIUM 139 mmol/L (132-148)
--- NOTE | 2017-04-23 11:25 | PN ---
DATE: 04/23/2017 SUBJECTIVE: The patient is lying in bed, comfortable. Diarrhea is much less. She is tolerating alton id foods. She denies any nausea and vomiting. Abdominal cramps are less. PHYSICAL EXAMINATION: VITAL SIGNS: Reveal temperature of 97.8, blood pressure 97/60, heart rate of 71. ABDOMEN: Soft, nontender. LABORATORY DATA: Stool for C and S, and O and P are all negative. IMPRESSION: A 26-year-old female with profuse diarrhea and colitis on CAT scan after eating raw [place] in the [place]. Clinically, the patient is improved dramatically. She is tolerating solid foods. RECOMMENDATIONS: The patient is stable from GI. She can be discharged home on Flagyl 500 mg 3 times a day with outpatient followup with her medical doctor. Cristobal Whitaker MD cc: [phone] TT: 04/23/2017 11:24:09 Confirmation # [id number] Dictation # [id number] marita
[2017-04-23 16:40] VITALS: BP 115/69; PULSE 70; RESP 20; TEMP 98; O2SAT 92
--- NOTE | 2017-04-23 17:09 | CP.PCM.PN ---
Subjective - Date & Time of Evaluation Date of Evaluation: 04/23/17 Time of Evaluation: 11:40 - Subjective Subjective: Comfortable, less abdominal pain, no fevers overnight, improving diarrhea. Objective - Vital Signs/Intake and Output Vital Signs (last 24 hours): Temp Pulse Resp BP Pulse Ox 98 F 70 20 115/69 92 L 04/23/17 16:00 04/23/17 16:00 04/23/17 16:00 04/23/17 16:00 04/23/17 16:00 Intake and Output: 04/23/17 04/23/17 06:59 18:59 Intake Total 1000 1100 Balance 1000 1100 - Medications Medications: Current Medications Acetaminophen (Tylenol 325mg Tab) 650 mg PO Q4H PRN PRN Reason: Fever >100.4 F Last Admin: 04/22/17 22:49 Dose: 650 mg Potassium Chloride 40 meq/ (Sodium Chloride) 1,020 mls @ 125 mls/hr IV .Q8H10M [facility] Last Admin: 04/23/17 07:50 Dose: 125 mls/hr Metronidazole (Flagyl) 500 mg in 100 mls @ 100 mls/hr IVPB Q8 [facility] PRN Reason: Protocol Last Admin: 04/23/17 06:12 Dose: 100 mls/hr Ceftriaxone Sodium (Rocephin 1 Gram Ivpb) 1 gm in 100 mls @ 100 mls/hr IVPB DAILY [facility] PRN Reason: Protocol Last Admin: 04/23/17 09:30 Dose: 100 mls/hr Ondansetron HCl (Zofran Inj) 4 mg IVP Q6 PRN PRN Reason: Nausea/Vomiting Pantoprazole Sodium (Protonix Inj) 40 mg IVP DAILY [facility] Last Admin: 04/23/17 09:30 Dose: 40 mg - Labs Labs: 04/23/17 10:10 04/23/17 10:10 PT 12.7 Seconds (9.9-11.8) H 04/21/17 00:16 INR 1.18 (0.93-1.08) H 04/21/17 00:16 APTT 34.5 Seconds (23.7-30.8) H 04/21/17 00:16 - Constitutional Appears: Non-toxic, No Acute Distress - Head Exam Head Exam: NORMAL INSPECTION - ENT Exam ENT Exam: Mucous Membranes Moist - Neck Exam Neck Exam: absent: Lymphadenopathy, Meningismus - Respiratory Exam Respiratory Exam: Decreased Breath Sounds - Cardiovascular Exam Cardiovascular Exam: +S1, +S2 - GI/Abdominal Exam GI & Abdominal Exam: Soft. absent: Tenderness Assessment and Plan - Assessment and Plan (Free Text) Plan: Assessment sepsis due to acute colitis, consider food-related, R/O dysentery from Salmonella, E. coli, clinically improving Plan continue Rocephin and Flagyl day 3; blood cx, stool cx, stool for ova and parasites have been negative - can be switched to PO antibiotics on discharge - discussed with Dr. Isabel Will continue to monitor clinical response
--- NOTE | 2017-05-20 09:53 | CP.PCM.DIS ---
<Enzo Best - Last Filed: 05/20/17 09:54> Provider - Provider Date of Admission: 04/22/17 16:03 Attending physician: Tariq Isabel MD Consults: infectious disease gastroenterology Time Spent in preparation of Discharge (in minutes): 20 Hospital Course - Lab Results Lab Results: Most Recent Lab Values WBC 10.4 10^3/ul (4.5-11.0) 04/23/17 10:10 RBC 4.14 10^6/uL (3.5-6.1) 04/23/17 10:10 Hgb 12.7 gm/dL (12.0-16.0) 04/23/17 10:10 Hct 35.2 % (36.0-48.0) L 04/23/17 10:10 MCV 85.0 fL (80.0-105.0) 04/23/17 10:10 MCH 30.7 pg (25.0-35.0) 04/23/17 10:10 MCHC 36.1 g/dl (31.0-37.0) 04/23/17 10:10 RDW 14.4 % (11.5-14.5) 04/23/17 10:10 Plt Count 294 10^3/uL (120.0-450.0) 04/23/17 10:10 MPV 11.1 fl (7.0-11.0) H 04/23/17 10:10 Gran % 66.4 % (50.0-68.0) 04/23/17 10:10 Lymph % (Auto) 24.0 % (22.0-35.0) 04/23/17 10:10 [place] % (Auto) 7.9 % (1.0-6.0) H 04/23/17 10:10 Eos % (Auto) 1.2 % (1.5-5.0) L 04/23/17 10:10 Baso % (Auto) 0.5 % (0.0-3.0) 04/23/17 10:10 Gran # 6.91 (1.4-6.5) H 04/23/17 10:10 Lymph # 2.5 (1.2-3.4) 04/23/17 10:10 [place] # 0.8 (0.1-0.6) H 04/23/17 10:10 Eos # 0.1 (0.0-0.7) 04/23/17 10:10 Baso # 0.05 K/mm3 (0.0-2.0) 04/23/17 10:10 Neutrophils % (Manual) 44 % (50.0-70.0) L 04/21/17 00:16 Band Neutrophils % 13 % (0-2) H* 04/21/17 00:16 Lymphocytes % (Manual) 20 % (22.0-35.0) L 04/21/17 00:16 Monocytes % (Manual) 23 % (1.0-6.0) H 04/21/17 00:16 Toxic Granulation 1+ 04/21/17 00:16 Platelet Evaluation Normal (NORMAL) 04/21/17 00:16 Large Platelets Present 04/21/17 00:16 PT 12.7 Seconds (9.9-11.8) H 04/21/17 00:16 INR 1.18 (0.93-1.08) H 04/21/17 00:16 APTT 34.5 Seconds (23.7-30.8) H 04/21/17 00:16 Sodium 139 mmol/L (132-148) 04/23/17 10:10 Potassium 3.7 mmol/L (3.6-5.0) 04/23/17 10:10 Chloride 110 mmol/L (95-110) 04/23/17 10:10 Carbon Dioxide 20 mmol/L (21-33) L 04/23/17 10:10 Anion Gap 13 (10-20) 04/23/17 10:10 BUN 7 mg/dL (7-21) 04/23/17 10:10 Creatinine 0.6 mg/dL (0.5-1.4) 04/23/17 10:10 Est GFR ( Amer) > 60 04/23/17 10:10 Est GFR (Non-Af Amer) > 60 04/23/17 10:10 Random Glucose 81 mg/dL (70-110) 04/23/17 10:10 Calcium 8.1 mg/dL (8.4-10.5) L 04/23/17 10:10 Magnesium 1.8 mg/dL (1.7-2.2) 04/21/17 00:16 Total Bilirubin 0.6 mg/dL (0.2-1.3) 04/21/17 08:00 AST 25 U/L (15-39) 04/21/17 08:00 ALT 34 U/L (7-56) 04/21/17 08:00 Alkaline Phosphatase 60 U/L (38-133) 04/21/17 08:00 Total Protein 5.7 g/dL (5.8-8.3) L 04/21/17 08:00 Albumin 2.7 g/dL (3.0-4.8) L 04/21/17 08:00 Globulin 3.0 gm/dL 04/21/17 08:00 Albumin/Globulin Ratio 0.9 (1.1-1.8) L 04/21/17 08:00 Lipase 104 U/L (23-300) 04/21/17 00:16 Urine Color Yellow (YELLOW) 04/21/17 00:16 Urine Appearance Cloudy (CLEAR) 04/21/17 00:16 Urine pH 6.0 (4.7-8.0) 04/21/17 00:16 Ur Specific Hen[place] 1.025 (1.005-1.035) 04/21/17 00:16 Urine Protein 100 mg/dL (<30 mg/dL) H 04/21/17 00:16 Urine Glucose (UA) Negative mg/dL (NEGATIVE) 04/21/17 00:16 Urine Ketones Negative mg/dL (NEGATIVE) 04/21/17 00:16 Urine Blood Small (NEGATIVE) H 04/21/17 00:16 Urine Nitrate Negative (NEGATIVE) 04/21/17 00:16 Urine Bilirubin Small (NEGATIVE) H 04/21/17 00:16 Urine Urobilinogen 0.2 E.U./dL (<1 E.U./dL) 04/21/17 00:16 Ur Leukocyte Esterase Negative Curry/uL (NEGATIVE) 04/21/17 00:16 Urine RBC 1 - 3 /hpf (0-2) 04/21/17 00:16 Urine WBC 2 - 5 /hpf (0-6) 04/21/17 00:16 Ur Epithelial Cells 1 - 3 /hpf (0-5) 04/21/17 00:16 Urine Bacteria Small (NEG) 04/21/17 00:16 Hyaline Casts 0 - 2 /hpf 04/21/17 00:16 Fine Granular Casts 0 - 2 /hpf (0-2) 04/21/17 00:16 Stool Occult Blood Positive (NEGATIVE) H 04/21/17 03:30 Stool Leukocytes, Qual Positive (NEGATIVE) H 04/21/17 03:30 - Hospital Course Hospital Course: 26 year old female with no significant past medical history presents to [facility] with abdominal pain, vomiting and diarrhea of 5 days. Patient reports on 04/16/17, she woke in the middle of the having generalized weakness and proceed to have NBNB vomiting and diarrhea. Patient also had a subjective fever at that time. Since then patient had about 3 episodes of vomiting and multiple bouts (every 30mins) of diarrhea daily. Two days after the onset patient started see small amount of blood in her diarrhea intermittently. Patient is not currently menstruating. Patient describes abdomen pain has a bloating sensation, and its worsen with movement or palpation. She tried taking over the counter motrin and luz seltzer, but did not provide any relief. Patient also complains of decreased appetite and cannot keep any solid food down. Patient reports a group of friends and her returned from a week long vacation in [facility] on 04/12/17. Out of 28 friends, 6 of them became sick with similar symptoms of abdominal pain, vomiting and diarrhea. However, most them started having symptoms on the last day of the trip and symptoms are not as severe as patient's. Denies having change of vision, photosensitivity, loss of consciousness, shortness of breath, chest pain, or urinary symptoms. Patient was then seen by infectious disease who recommended blood cx, stool cx, stool and ova parasites be done. All which resulted negative. As per ID patient recs patient was placed on rocephin and flagyl. 04/23: Patient cleared for discharge by both infectious disease and gastroenterology, Dr. Whitaker, who recommended continuation of antibiotics and follow up with primary medical doctor. PAtient was discharged on PO abx Vantin and flagyl and instructed to follow up with primary care physician. Above is a brief summary of patient's hospital course, for more details please refer to medical records. Discharge Exam - Head Exam Head Exam: NORMAL INSPECTION - Eye Exam Eye Exam: Normal appearance - ENT Exam ENT Exam: Mucous Membranes Moist - Respiratory Exam Respiratory Exam: NORMAL BREATHING PATTERN - Cardiovascular Exam Cardiovascular Exam: +S1, +S2 - GI/Abdominal Exam GI & Abdominal Exam: Soft. absent: Firm, Guarding, Rigid - Neurological Exam Neurological exam: Alert, Oriented x3 - Skin Skin Exam: Dry, Warm Discharge Plan - Discharge Medications Prescriptions: Cefpodoxime [Vantin] 200 mg PO BID #10 tab metroNIDAZOLE [Flagyl] 500 mg PO Q8H #15 tab - Follow Up Plan Condition: FAIR Disposition: HOME/ ROUTINE Instructions: Traveler's Diarrhea (GEN), Dehydration (DC), Low Fat Diet (DC), Infectious Colitis (GEN) Additional Instructions: You are being discharged to home. Your prescriptions have been phoned into [facility]. Please follow up with your primary care physician to make him/ her aware of your hospitalization. You are being prescribed Vantin 200 mg BID and Flagyl 500 mg q8. Please take them according to the instructions. If you are taking any oral contraceptives, be mindful that antibiotics may interfere with there effectiveness and a backup method of contraception is necessary while taking said antibiotics. Please check the advisory on the bottles. If your symptoms worsen, please return to the Emergency Room. Please follow a dairy free, fat free diet for a couple of days to rest your stomach. Reintroduce foods as tolerated. Make sure and drink enough fluids to stay properly hydrated. <Tariq Isabel - Last Filed: 05/20/17 11:55> Provider - Provider Date of Admission: 04/22/17 16:03 Attending physician: Tariq Isabel MD Time Spent in preparation of Discharge (in minutes): 35 Hospital Course - Lab Results Lab Results: Most Recent Lab Values WBC 10.4 10^3/ul (4.5-11.0) 04/23/17 10:10 RBC 4.14 10^6/uL (3.5-6.1) 04/23/17 10:10 Hgb 12.7 gm/dL (12.0-16.0) 04/23/17 10:10 Hct 35.2 % (36.0-48.0) L 04/23/17 10:10 MCV 85.0 fL (80.0-105.0) 04/23/17 10:10 MCH 30.7 pg (25.0-35.0) 04/23/17 10:10 MCHC 36.1 g/dl (31.0-37.0) 04/23/17 10:10 RDW 14.4 % (11.5-14.5) 04/23/17 10:10 Plt Count 294 10^3/uL (120.0-450.0) 04/23/17 10:10 MPV 11.1 fl (7.0-11.0) H 04/23/17 10:10 Gran % 66.4 % (50.0-68.0) 04/23/17 10:10 Lymph % (Auto) 24.0 % (22.0-35.0) 04/23/17 10:10 [place] % (Auto) 7.9 % (1.0-6.0) H 04/23/17 10:10 Eos % (Auto) 1.2 % (1.5-5.0) L 04/23/17 10:10 Baso % (Auto) 0.5 % (0.0-3.0) 04/23/17 10:10 Gran # 6.91 (1.4-6.5) H 04/23/17 10:10 Lymph # 2.5 (1.2-3.4) 04/23/17 10:10 [place] # 0.8 (0.1-0.6) H 04/23/17 10:10 Eos # 0.1 (0.0-0.7) 04/23/17 10:10 Baso # 0.05 K/mm3 (0.0-2.0) 04/23/17 10:10 Neutrophils % (Manual) 44 % (50.0-70.0) L 04/21/17 00:16 Band Neutrophils % 13 % (0-2) H* 04/21/17 00:16 Lymphocytes % (Manual) 20 % (22.0-35.0) L 04/21/17 00:16 Monocytes % (Manual) 23 % (1.0-6.0) H 04/21/17 00:16 Toxic Granulation 1+ 04/21/17 00:16 Platelet Evaluation Normal (NORMAL) 04/21/17 00:16 Large Platelets Present 04/21/17 00:16 PT 12.7 Seconds (9.9-11.8) H 04/21/17 00:16 INR 1.18 (0.93-1.08) H 04/21/17 00:16 APTT 34.5 Seconds (23.7-30.8) H 04/21/17 00:16 Sodium 139 mmol/L (132-148) 04/23/17 10:10 Potassium 3.7 mmol/L (3.6-5.0) 04/23/17 10:10 Chloride 110 mmol/L (95-110) 04/23/17 10:10 Carbon Dioxide 20 mmol/L (21-33) L 04/23/17 10:10 Anion Gap 13 (10-20) 04/23/17 10:10 BUN 7 mg/dL (7-21) 04/23/17 10:10 Creatinine 0.6 mg/dL (0.5-1.4) 04/23/17 10:10 Est GFR ( Amer) > 60 04/23/17 10:10 Est GFR (Non-Af Amer) > 60 04/23/17 10:10 Random Glucose 81 mg/dL (70-110) 04/23/17 10:10 Calcium 8.1 mg/dL (8.4-10.5) L 04/23/17 10:10 Magnesium 1.8 mg/dL (1.7-2.2) 04/21/17 00:16 Total Bilirubin 0.6 mg/dL (0.2-1.3) 04/21/17 08:00 AST 25 U/L (15-39) 04/21/17 08:00 ALT 34 U/L (7-56) 04/21/17 08:00 Alkaline Phosphatase 60 U/L (38-133) 04/21/17 08:00 Total Protein 5.7 g/dL (5.8-8.3) L 04/21/17 08:00 Albumin 2.7 g/dL (3.0-4.8) L 04/21/17 08:00 Globulin 3.0 gm/dL 04/21/17 08:00 Albumin/Globulin Ratio 0.9 (1.1-1.8) L 04/21/17 08:00 Lipase 104 U/L (23-300) 04/21/17 00:16 Urine Color Yellow (YELLOW) 04/21/17 00:16 Urine Appearance Cloudy (CLEAR) 04/21/17 00:16 Urine pH 6.0 (4.7-8.0) 04/21/17 00:16 Ur Specific [place] 1.025 (1.005-1.035) 04/21/17 00:16 Urine Protein 100 mg/dL (<30 mg/dL) H 04/21/17 00:16 Urine Glucose (UA) Negative mg/dL (NEGATIVE) 04/21/17 00:16 Urine Ketones Negative mg/dL (NEGATIVE) 04/21/17 00:16 Urine Blood Small (NEGATIVE) H 04/21/17 00:16 Urine Nitrate Negative (NEGATIVE) 04/21/17 00:16 Urine Bilirubin Small (NEGATIVE) H 04/21/17 00:16 Urine Urobilinogen 0.2 E.U./dL (<1 E.U./dL) 04/21/17 00:16 Ur Leukocyte Esterase Negative Curry/uL (NEGATIVE) 04/21/17 00:16 Urine RBC 1 - 3 /hpf (0-2) 04/21/17 00:16 Urine WBC 2 - 5 /hpf (0-6) 04/21/17 00:16 Ur Epithelial Cells 1 - 3 /hpf (0-5) 04/21/17 00:16 Urine Bacteria Small (NEG) 04/21/17 00:16 Hyaline Casts 0 - 2 /hpf 04/21/17 00:16 Fine Granular Casts 0 - 2 /hpf (0-2) 04/21/17 00:16 Stool Occult Blood Positive (NEGATIVE) H 04/21/17 03:30 Stool Leukocytes, Qual Positive (NEGATIVE) H 04/21/17 03:30 Attending/Attestation - Attestation I have personally seen and examined this patient.: Yes I have fully participated in the care of the patient.: Yes I have reviewed all pertinent clinical information, including history, physical exam and plan: Yes Notes (Text): 05/20/17 11:53 D/C Summary for 04/22/17 26 year old female with no significant past medical history who presented with complaint of fever, nausea, vomiting, diarrhea and abdominal pain. She admitted to recent travel and sicks contacts with similar complaints. She had a CT abd/pelvis which showed infectious vs inflammatory colitis from the mid transverse colon to proximal sigmoid colon. Her symptoms were likely secondary to acute gastroenteritis or infectious colitis. Symptoms improved with fluids and antibiotics. She was seen by GI and ID. She is discharged home to follow up with her pmd. Tariq Isabel MD Hospitalist.
== END 2017-04-23 18:33 | disposition home or self-care (01) | DRG 551 ==
LOC: ED 23:06 → UNDOADMOB 04-21 01:17 → ERH 04-21 01:17 → 5RSO 04-21 07:28 → 2RSO 04-21 19:06 → OBSVTOIN 04-22 09:00 → INTOOBSV 04-22 09:00 → ERH 04-22 16:03 → 5RNO 04-22 16:03 → OBSVTOIN 04-22 16:03 → 5RSO 04-22 16:03 → 2RSO 04-22 16:03 → 5RSO 04-23 01:07 → 2RSO 04-23 01:07 → 5RSO 04-23 04:45 → 5RNO 04-23 04:45 → UNDODISIN 04-23 18:33
PROVIDERS: ADMIT Internal Medicine; ATTEND Internal Medicine
DX: K52.89 Other specified noninfective gastroenteritis and colitis (principal); T61.91XA Toxic effect of unspecified seafood, accidental (unintentional), initial encounter; A41.9 Sepsis, unspecified organism; E87.1 Hypo-osmolality and hyponatremia; Z87.891 Personal history of nicotine dependence